=== PATIENT | male | born 1950 | race Caucasian/White ===

== ENCOUNTER → 2018-11-13 | Outpatient (CLI) | payer MEDICARE ==
[~2018-11-13] MED LIST: ALBU17IN INH; AMIO1TAB PO; ASPI1TAB PO; AVEL1TAB2 PO; CARA1TAB2 PO; CRES20TA PO; DOCU100C PO; FAMO40TA3 PO; LASI40TA PO; METO1TAB87 PO; MULTCAP11 PO; PERCOCET FT; PERCOCET PO; POTA20TA PO; PROT1TAB2 PO; ROPINIROLE PO; SODI1TAB6 PO; TYLE325T5 PO
--- NOTE | 2018-11-13 15:33 | REP ---
CHEST, TWO VIEWS: Two views of the chest are performed and compared to multiple prior exams, most recently 03/21/2016. There is mild biapical pleural thickening with scattered interstitial fibrotic scarring bilaterally. There is blunting of the right costophrenic angle consistent with mild chronic right pleural thickening and/or fluid. The heart is normal in size. There is mild calcification of the thoracic aorta. The mediastinal silhouette is unchanged. There are mild degenerative changes of the spine. IMPRESSION: Mild diffuse interstitial fibrotic change. Mild chronic right pleural fluid and/or thickening. Electronically Signed by Ari Cornell MD 11/13/2018 04:02 P
== END ==
LOC: M SMT 14:59
PROVIDERS: ATTEND Internal Medicine Pulmonary Disease
DX: J44.9 Chronic obstructive pulmonary disease, unspecified (principal); R91.8 Other nonspecific abnormal finding of lung field

== ENCOUNTER 2019-12-30 01:02 | Inpatient (IN) | payer MEDICARE ==
[~2019-12-30] VITALS: Ht 172.7 cm; Wt 67.3 kg
[~2019-12-30 01:02] MED LIST changes: +PRAVASTATIN 20 MG TAB PO SCH; +rOPINIRole 2MG TAB PO SCH; +traZODone 50 MG TAB PO SCH
[2019-12-30 02:22] VITALS: BP 153/83
--- NOTE | 2019-12-30 02:59 | HPEPDOC ---
[facility] Medical History & Physical Date of Admission December 30, 2019 Date of Service: December 30, 2019 Attending Physician: Flavia Wang MD History and Physical CHIEF COMPLAINT: dark stools HISTORY OF PRESENT ILLNESS: The patient is a 69-year-old male with past medical history of GI bleed secondary to peptic ulcer (10/2013), CAD status post CABG and stenting, hypertension, GERD, restless leg syndrome, alcohol abuse, COPD, tobacco use who presented originally to [facility] for new onset of black, tarry stools. At approx 9 PM the patient states he had a bowel movement and noticed black, tarry stools. He also complained of some abdominal bloating and distent ion. He denied any acute bleeding or bright red blood in the toilet. Patient has history of upper GI bleed 2/2 to peptic ulcer and stated that this was how it began then. Denies chest pain, fevers, chills, shortness of breath, lightheadedness, dizziness, n/v/d, sick contacts, medication changes, increased weakness, abdominal pain. He has a chronic cough which has not changed in mason quency or intensity over the past year. He was recently seen in [facility] 5 days ago for shortness of chest pain, was later discharged home from the ER. At [facility] ER, patient's VS stable. WBC 6.0, H&H 13.3/39, platelets 311, sodium 127, chloride 95, creatinine 0.9. Hyponatremia appears to be chronic, possibly beer potomania. Occult blood was positive. The patient was hospitalized in 2013 for GI bleed found to be upper secondary to peptic ulcer and was transfused ultimately units at that time. Patient is a chronic alcoholic, last drink 2-3 nights ago. Due to the patient's history and positive testing, he was transferred to our facility in the event that his situation should worsen and would require endoscopy/surgical consult. Admitting diagnosis: GI bleed. ROS: Negative except for what is mentioned above. PAST MEDICAL HISTORY: 1. CAD s/p CABG and stenting 2. HTN 3. GERD, peptic ulcer disease 4. Restless leg syndrome 5. ETOH abuse 6. Tobacco use. 7. COPD PAST SURGICAL HISTORY: 1. CABG 2. Hernia repair SOCIAL HISTORY: Smoker 1 1/2 PPD, for 50 years. Denies illicit drug use. Drinks 5-6 beers/night, denies frequently getting withdrawls. Last drink 2-3 nights ago. Lives with his in [place], [place]. PCP is in [place]. Supervisor [employer] is Dr. Lassiter. FAMILY HISTORY: Father: COPD. at unknown age. Mother: COPD. at unknown age. No other known family history. ALLERGIES: Please see below. HOME MEDICATIONS: Please see below. PHYSICAL EXAMINATION: CONSTITUTIONAL: No acute distress, resting comfortably, AAO x 3 EYES: PERRLA, EOM intact HENT, MOUTH: Normocephalic, atraumatic, moist mucous membranes, NECK: SUPPLE, no JVD, no lymphadenopathy, no carotid bruit CV: Regular rate and rhythm, S1S2 normal, no murmurs/rubs/gallops RESPIRATORY: Clear to auscultation bilaterally, no rales/rhonchi/wheezes GI: distended abdomen, BS positive in 4 quadrants, soft, nontender, no rebound or guarding, no organomegaly : Deferred MUSCULOSKELETAL: Normal ROM. No cyanosis, clubbing, swelling, joint deformity, LLE swelling L>R- chronic according to patient. INTEGUMENTARY: Intact, no rashes, no lesions, no erythema NEUROLOGIC: Cranial Nerves II-XII are intact, no focal deficits PSYCHIATRIC: Mood and affect are normal LABORATORY DATA: Please see below IMAGING: None ASSESSMENT: 69 y/o M admitted for acute GI bleed. PLAN: 1. Acute GI bleed. Occult +, hx of peptic ulcer as cause of GI bleed in past. Hemodynamically stable. Clear liquid diet, IV PPI BID, telemetry. Consider surge ry consult in the AM. Monitor CBC closely. 2. Hyponatremia, unknown if acute vs. chronic. F/u urine osmolality, urine sodium. Known drinker, possible potomania. C/w IVFs at 100 cc/hr, f/u AM labs. 3. CAD s/p CABG. Denies chest pain, shortness of breath. C/w home BB, statin. Holding ASA. 4. Chronic cough likely 2/2 to tobacco use. No change in frequency, character or intensity in the past year. Tessalon PRN. 5. LLE swelling, chronic. Doppler LLE ordered; however, patient states he has had this examined in the past for DVT and it has been neg. 6. Restless leg syndrome. c/w ropinirole. 7. ETOH abuse. No signs of withdrawl. CIWA protocol, thiamine, folic acid, MV. 8. Tobacco use. Nicotine patch. 9. HTN. Stable. C/w home medications, holding lasix. 10. COPD. Not in exacerbation. On RA, no shortness of breath. Duonebs PRN. 11. DVT px. Teds, SCDs. DISPOSITION: Admitted under inpatient status. Plan is discharge home when medically improved. Home Medications Scheduled Famotidine (Famotidine) 40 Mg Tablet, 40 MG PO BID Lisinopril (Lisinopril) 40 Mg Tablet, 40 MG PO DAILY Metoprolol Tartrate (Metoprolol Tartrate) 50 Mg Tablet, 50 MG PO BID Pravastatin Sodium (Pravastatin Sodium) 40 Mg Tablet, 40 MG PO QHS Ropinirole HCl (Ropinirole HCl) 4 Mg Tablet, 4 MG PO QHS Trazodone HCl (Trazodone HCl) 50 Mg Tablet, 50 MG PO QHS Scheduled PRN Benzonatate (Benzonatate) 100 Mg Capsule, 100 MG PO TID PRN for COUGH Allergies Coded Allergies: Penicillins (Verified Allergy, Unknown, 12/30/19) A-FIB/CHADSVASC A-FIB History Current/History of A-Fib/PAF?: No Current PO Anticoag Therapy: No Age/Risk Factor Scoring CHADSVASC: CHADSVASC Response (Comments) Value Gender Risk Factor Male 0 Hx of CHF No 0 Hx of HTN Yes 1 Hx of Stroke/TIA/or VTE No 0 Hx of Diabetes No 0 Hx of Vascular Disease No 0 Total 1 Treatment Treatment ordered: NONE Reason Anticoagulant not given: Current bleeding (current bleeding ) Flavia Wang MD December 30, 2019 02:59
[2019-12-30] MEDS ORDERED: SLF 3 ML SYR IV PRN (03:30)
[2019-12-30] MEDS ORDERED: METO50TA7 PO (03:52)
[2019-12-30] MEDS ORDERED: ROPI4TAB3 PO (03:52)
[2019-12-30] MEDS ORDERED: BENZ-18 PO (03:52)
[2019-12-30] MEDS ORDERED: FAMO40TA3 PO (03:52)
[2019-12-30] MEDS ORDERED: TRAZ-252 PO (03:52)
[2019-12-30] MEDS ORDERED: LISI40TA4 PO (03:52)
[2019-12-30] MEDS ORDERED: PRAV40TA2 PO (03:52)
[2019-12-30 04:00] VITALS: BP 129/63
[2019-12-30] MEDS ORDERED: BENZONATATE 100 MG CAP PO PRN (04:00)
[2019-12-30] MEDS ORDERED: TREL1AER INH (04:12)
[2019-12-30] MEDS ORDERED: ASPI81TA86 PO (04:12)
[2019-12-30] MEDS ORDERED: NS 1,000 ML IV SCH (04:15)
[2019-12-30] MEDS ORDERED: THIAMINE 100 MG TAB PO SCH (04:21)
[2019-12-30] MEDS ORDERED: IPRATROPIUM 0.5MG/ALBUTEROL 2.5MG INH SOL UD 3ML (DUONEB) NEB PRN (04:30)
[2019-12-30] MEDS ORDERED: LORazepam 2 MG TAB PO PRN (04:30)
[2019-12-30 04:57] LABS: HEMATOCRIT 39.4 % (42.0-52.0); HEMOGLOBIN 13.2 g/dl (13.5-17.5); MEAN CORPUSCULAR HEMOGLOBIN 31.5 pg (27.0-33.0); MEAN CORPUSCULAR HGB CONC 33.5 g/dl (32.0-36.5); PLATELET COUNT, AUTOMATED 289 10^3/uL (150-450); RED BLOOD COUNT 4.19 10^6/uL (4.30-6.10); WHITE BLOOD COUNT 5.9 10^3/uL (4.0-10.0)
[2019-12-30 05:07] LABS: INR 1.05; PROTHROMBIN TIME 13.4 SECONDS (11.8-14.0)
[2019-12-30 05:08] LABS: PARTIAL THROMBOPLASTIN TIME 34.7 SECONDS (25.0-38.4)
[2019-12-30 05:20] LABS: ALBUMIN 2.9 GM/DL (3.2-5.2); ALT/SGPT 16 U/L (12-78); BILIRUBIN,TOTAL 0.6 MG/DL (0.2-1.0); BLOOD UREA NITROGEN 11 MG/DL (7-18); CALCIUM LEVEL 8.1 MG/DL (8.8-10.2); CARBON DIOXIDE LEVEL 27 MEQ/L (21-32); CHLORIDE LEVEL 101 MEQ/L (98-107); CREATININE FOR GFR 0.75 MG/DL (0.70-1.30); GLOMERULAR FILTRATION RATE > 60.0 (>49); GLUCOSE, FASTING 91 MG/DL (70-100); POTASSIUM SERUM 4.3 MEQ/L (3.5-5.1); SODIUM LEVEL 133 MEQ/L (136-145); TOTAL PROTEIN 6.8 GM/DL (6.4-8.2)
[2019-12-30 06:00] VITALS: BP 123/69
[2019-12-30] MEDS: SLF 3 ML SYR IV SCH ×2 (06:00→13:32)
[2019-12-30 08:00] VITALS: BP 141/81
--- NOTE | 2019-12-30 08:15 | REP ---
Duplex extremity venous ultrasound: Left lower extremity. History: Left leg pain and swelling. Rule out DVT. Findings: The deep veins are anechoic and fully compressible from the groin to the popliteal fossa in the left lower extremity. Color flow imaging is homogeneous. Spectral Doppler interrogation demonstrates intact respiratory variation in flow and normal manual augmentation of flow. There is no evidence of deep vein thrombosis. Impression: Negative left lower extremity duplex venous ultrasound. No evidence of deep vein thrombosis. Electronically Signed by Alonzo Vanessa MD 12/30/2019 08:06 A
[2019-12-30 08:21] VITALS: BP 141/81
[2019-12-30] MEDS ORDERED: MULTIVITAMINS/MINERALS THERAP 1 TAB PO SCH (09:00)
[2019-12-30] MEDS ORDERED: METOPROLOL TART 50 MG TAB PO SCH (09:00)
[2019-12-30] MEDS ORDERED: PANTOPRAZOLE 40MG VIAL (C9113 PER 1) IV SCH (09:00)
[2019-12-30] MEDS ORDERED: FOLIC ACID 1 MG TAB PO SCH (09:00)
[2019-12-30] MEDS ORDERED: lisinopriL 40 MG TAB PO SCH (09:00)
[2019-12-30] MEDS ORDERED: NICOTINE 14 MG/24 HR TRANSDERMAL TD SCH (09:00)
[2019-12-30 12:00] VITALS: BP 148/58
[2019-12-30 12:44] LABS: HEMATOCRIT 40.6 % (42.0-52.0); HEMOGLOBIN 13.4 g/dl (13.5-17.5); MEAN CORPUSCULAR HEMOGLOBIN 31.7 pg (27.0-33.0); PLATELET COUNT, AUTOMATED 301 10^3/uL (150-450); RED BLOOD COUNT 4.23 10^6/uL (4.30-6.10); WHITE BLOOD COUNT 5.4 10^3/uL (4.0-10.0)
--- NOTE | 2019-12-30 13:59 | DS.PDOC ---
Discharge Summary General Date of Admission December 30, 2019 at 02:22 Date of Discharge 12/30/2019 Attending Physician: STEFAN ROSENTHAL MD Discharge Summary PROCEDURES PERFORMED DURING STAY: None. ADMITTING DIAGNOSES: 1. Rule out GI bleed. DISCHARGE DIAGNOSES: 1. Rule out GI bleed. COMPLICATIONS/CHIEF COMPLAINT: Gi Bleed. HISTORY OF PRESENT ILLNESS: 69-year-old male with multiple medical comorbidities, was transferred from [facility] for possible GI bleed. Patient had one episode of dark stool yesterday, no bowel movement since, asymptomatic and comfortable when seen in the morning today. Patient's hemoglobin was trended and has remained stable throughout today. Patient is clinically and hemodynamically stable for discharge and outpatient follow-up for possible endoscopy. Patient is advised to follow with fast food manager and PCP within 1-2 weeks. Patient is agreeable with this plan, will be discharged later today. HOSPITAL COURSE: As above. DISCHARGE MEDICATIONS: Please see below. ALLERGIES: Please see below. PHYSICAL EXAMINATION: VITAL SIGNS: Please see below. GENERAL: No distress HEENT: Normocephalic, atraumatic, moist mucous membranes NECK: Supple CARDIOVASCULAR EXAMINATION: S1, S2, no murmurs RESPIRATORY EXAMINATION: Clear to auscultation, no wheezing ABDOMINAL EXAMINATION: Soft, nontender, nondistended, positive bowel sounds EXTREMITIES: Range of motion intact SKIN: No rash NEUROLOGICAL EXAMINATION: Alert and oriented 3, no focal deficits PSYCHIATRIC EXAMINATION: Calm and cooperative LABORATORY DATA: Please see below. PROGNOSIS: Fair ACTIVITY: As tolerated. DIET: Cardiac DISCHARGE PLAN: Follow with PCP and GI in 1-2 weeks DISPOSITION: Home. DISCHARGE INSTRUCTIONS: 1. As above. DISCHARGE CONDITION: Stable. TIME SPENT ON DISCHARGE: Greater than 25 minutes. Vital Signs/I&Os Vital Signs Date Time Temp Pulse Resp B/P (MAP) Pulse Ox O2 Delivery O2 Flow Rate FiO2 12/30/19 12:00 98.3 80 20 148/58 (88) 90 Room Air I&O- Last 24 Hours up to 6 AM 12/30/19 06:00 Output Total 400 ml Balance -400 ml Laboratory Data Labs 24H Laboratory Tests 2 12/30/19 04:23: Nucleated Red Blood Cells % (auto) 0.0, Prothrombin Time 13.4, Prothromb Time International Ratio 1.05, Activated Partial Thromboplast Time 34.7, Anion Gap 5L, Glomerular Filtration Rate > 60.0, Calcium Level 8.1L, Total Bilirubin 0.6, Aspartate Amino Transf (AST/SGOT) 14, Alanine Aminotransferase (ALT/SGPT) 16, Alkaline Phosphatase 110, Total Protein 6.8, Albumin 2.9L, Albumin/Globulin Ratio 0.7 12/30/19 12:33: Nucleated Red Blood Cells % (auto) 0.0 CBC/BMP Laboratory Tests 12/30/19 04:23 12/30/19 12:33 Discharge Medications Scheduled Aspirin (Aspir 81) 81 Mg Tablet.dr, 81 MG PO DAILY, (Reported) Famotidine (Famotidine) 40 Mg Tablet, 40 MG PO DAILY, (Reported) Fluticasone/Umeclidin/Vilanter (Trelegy Ellipta 100-62.5-25) 1 Each Blst.w.dev, 1 PUFF INH DAILY, (Reported) Lisinopril (Lisinopril) 40 Mg Tablet, 40 MG PO DAILY, (Reported) Metoprolol Tartrate (Metoprolol Tartrate) 50 Mg Tablet, 50 MG PO BID, (Reported) Pravastatin Sodium (Pravastatin Sodium) 40 Mg Tablet, 40 MG PO QHS, (Reported) Ropinirole HCl (Ropinirole HCl) 4 Mg Tablet, 4 MG PO QHS, (Reported) Trazodone HCl (Trazodone HCl) 50 Mg Tablet, 50 MG PO QHS, (Reported) Scheduled PRN Benzonatate (Benzonatate) 100 Mg Capsule, 100 MG PO TID PRN for COUGH, (Reported) Allergies Coded Allergies: Penicillins (Verified Allergy, Intermediate, HIVES, 12/30/19) STEFAN ROSENTHAL MD December 30, 2019 13:59
== END 2019-12-30 15:45 | disposition home or self-care (01) | DRG 378 ==
LOC: M PCU 02:22
PROVIDERS: ADMIT Internal Medicine; ATTEND Internal Medicine
DX: K92.2 Gastrointestinal hemorrhage, unspecified (principal); E87.1 Hypo-osmolality and hyponatremia; I10 Essential (primary) hypertension; J44.9 Chronic obstructive pulmonary disease, unspecified; F10.10 Alcohol abuse, uncomplicated; Z79.899 Other long term (current) drug therapy; Z79.82 Long term (current) use of aspirin; Z88.0 Allergy status to penicillin; I25.10 Atherosclerotic heart disease of native coronary artery without angina pectoris; Z95.1 Presence of aortocoronary bypass graft; Z95.2 Presence of prosthetic heart valve; G25.81 Restless legs syndrome; F17.200 Nicotine dependence, unspecified, uncomplicated; K21.9 Gastro-esophageal reflux disease without esophagitis

== ENCOUNTER 2020-01-19 14:48 | Emergency (ER) | payer MEDICARE ==
[~2020-01-19] VITALS: Ht 170.2 cm; Wt 64.0 kg
[~2020-01-19 14:48] MED LIST changes: +ASPI81TA85 PO; +BENZ-18 PO; +LISI40TA PO; +METO50TA7 PO; +PRAV40TA2 PO; -PRAVASTATIN 20 MG TAB PO SCH; +ROPI4TAB3 PO; +TRAZ-252 PO; +TREL1AER INH; -rOPINIRole 2MG TAB PO SCH; -traZODone 50 MG TAB PO SCH
[2020-01-19] MEDS ORDERED: NITR0.4S14 (15:02)
[2020-01-19] MEDS ORDERED: FURO40TA2 (15:02)
[2020-01-19 15:21] LABS: BASO % 0.3 % (0.0-1.0); EOS # 0.1 10^3/uL (0.0-0.5); EOS % 0.6 % (0.0-3.0); HEMATOCRIT 42.8 % (42.0-52.0); HEMOGLOBIN 14.6 g/dl (13.5-17.5); LYMPH # 1.2 10^3/uL (1.5-5.0); LYMPH % 11.8 % (24.0-44.0); MEAN CORPUSCULAR HEMOGLOBIN 31.5 pg (27.0-33.0); MEAN CORPUSCULAR HGB CONC 34.1 g/dl (32.0-36.5); MEAN CORPUSCULAR VOLUME 92.2 fl (80.0-96.0); MONO % 9.4 % (0.0-5.0); NEUTROPHILS % 77.2 % (36.0-66.0); PLATELET COUNT, AUTOMATED 392 10^3/uL (150-450); RED BLOOD COUNT 4.64 10^6/uL (4.30-6.10); WHITE BLOOD COUNT 10.3 10^3/uL (4.0-10.0)
[2020-01-19] MEDS ORDERED: GABAPENTIN 400 MG CAP PO ONE (15:30)
[2020-01-19] MEDS ORDERED: GI COCKTAIL 50ML BTL(HYOSCYAMINE/MAALOX/LIDOCAINE VISCOUS)(1:3:1) PO ONE (15:30)
[2020-01-19 15:49] LABS: BLOOD UREA NITROGEN 17 MG/DL (7-18); CALCIUM LEVEL 9.8 MG/DL (8.8-10.2); CARBON DIOXIDE LEVEL 27 MEQ/L (21-32); CHLORIDE LEVEL 89 MEQ/L (98-107); CREATININE FOR GFR 1.26 MG/DL (0.70-1.30); GLOMERULAR FILTRATION RATE > 60.0 (>49); GLUCOSE, FASTING 116 MG/DL (70-100); SODIUM LEVEL 125 MEQ/L (136-145)
[2020-01-19] MEDS ORDERED: VALT1TAB PO (16:01)
[2020-01-19] MEDS ORDERED: NEUR300C PO (16:01)
[2020-01-19] MEDS ORDERED: CAPS0.022 TOP (16:01)
[2020-01-19 16:12] VITALS: BP 132/76
--- NOTE | 2020-01-19 16:28 | REP ---
CHEST, SINGLE VIEW: Single view of the chest is performed and compared to prior study of 11/13/2018. Blunting of the right costophrenic angle is unchanged. There is bilateral scattered interstitial fibrosis, unchanged. No acute infiltrate is seen. Heart and mediastinum are unchanged. IMPRESSION: Stable chronic changes. Electronically Signed by Ari Cornell MD 01/21/2020 12:54 A
--- NOTE | 2020-01-19 20:18 | ECGEPIP ---
[facility] - ED Test Date: 2020-01-19 Pat Name: JUSTICE LIZAMA Department: Room: - Gender: Male Drafter Geological: jfox : 1950 Requested By: Marlo Mcallister Order Number: [id number] Reading MD: Stephanie Ovalles Measurements Intervals [place] Rate: 106 P: 70 IA: 157 QRS: 79 QRSD: 141 T: 67 QT: 345 QTc: 459 Interpretive Statements SINUS TACHYCARDIA RIGHT BUNDLE BRANCH BLOCK INCREASED RATE 10/20/15 Electronically Signed on 01-19-2020 20:18:28 EDT by Stephanie Ovalles
== END 2020-01-19 16:21 | disposition home or self-care (01) ==
LOC: M ED 14:48
DX: G58.0 Intercostal neuropathy (principal); R00.0 Tachycardia, unspecified; I45.10 Unspecified right bundle-branch block; I51.9 Heart disease, unspecified; E78.5 Hyperlipidemia, unspecified; J44.9 Chronic obstructive pulmonary disease, unspecified; Z79.82 Long term (current) use of aspirin; Z79.899 Other long term (current) drug therapy; Z88.0 Allergy status to penicillin